=== PATIENT | female | born 1990 | race Caucasian/White ===

== ENCOUNTER 2017-06-10 17:51 | Emergency (ER) | payer BC ==
[~2017-06-10] VITALS: Ht 165.1 cm; Wt 77.1 kg
[~2017-06-10 17:51] MED LIST: NORE-69 PO; TRAZ50TA15 PO; VENL37.56 PO
[2017-06-10 18:35] LABS: BASO % 1 % (0-3); EOS % 2 % (0-3); HEMATOCRIT 45.4 % (36.0-47.0); HEMOGLOBIN 15.6 g/dL (12.0-15.5); LYMPH # 2.5 x10^3/uL (1.0-4.8); LYMPH % 33 % (24-48); MEAN CORPUSCULAR HEMOGLOBIN 33 pg (25-35); MEAN CORPUSCULAR HGB CONC 34 g/dL (31-37); MEAN CORPUSCULAR VOLUME 97 fL (79-100); MONO % 6 % (0-9); NEUT % 58 % (31-73); PLATELET COUNT 389 x10^3/uL (140-400); RED BLOOD COUNT 4.67 x10^6/uL (3.50-5.40); RED CELL DISTRIBUTION WIDTH 13.5 % (11.5-14.5); WHITE BLOOD COUNT 7.5 x10^3/uL (4.0-11.0)
[2017-06-10 18:36] LABS: BILIRUBIN,URINE NEGATIVE (NEG); GLUCOSE,URINE NEGATIVE (NEG); NITRITE,URINE NEGATIVE (NEG); PROTEIN,URINE NEGATIVE (NEG-TRACE); UROBILINOGEN,URINE 0.2 mg/dL (0.2 mg/dL)
[2017-06-10 18:42] LABS: BACTERIA,URINE FEW /HPF (0-FEW); RBC,URINE 0 /HPF (0-2); SQUAMOUS EPITHELIAL CELL,UR FEW /LPF; WBC,URINE 0 /HPF (0-4)
[2017-06-10] MEDS ORDERED: FAMO40TA57 PO (18:44)
--- NOTE | 2017-06-10 18:44 | PHYS DOC ---
Adult General Chief Complaint Chief Complaint: ABDOMINAL PAIN HPI HPI 19-year-old female presenting to the emergency department today with epigastric abdominal pain. Her pain is moderate burning sensation nonradiating without alleviating factors. She has had a few episodes of nausea without vomiting. She has had loose stools recently without any fevers or chills. She denies being . Review of systems is negative for chest pain shortness of breath cough fevers or chills. She does report being constipated. All other review of systems is negative unless otherwise noted in history of present illness. ED course: 27-year-old female presenting the emergency Department generalized epigastric abdominal pain. Triage vital signs. Pertinent physical exam findings showed a soft nontender abdomen. Negative McBurney's point. Negative Bullock sign. No rebound tenderness or guarding. Otherwise lungs are clear to auscultation and the patient is well-appearing in the examination room. Blood work sent. GI cocktail and Pepcid ordered. On reexamination the patient is feeling much better and subsequently was discharged home with oral Pepcid to follow-up with her Dr. The patient was then discharged home in stable condition to follow up with their primary care physician over the next 2-3 days. They were to return if their symptoms worsened or if they were concerned for any reason. [id number] discharge instructions and return precautions were given. Patient's questions were answered to their satisfaction. Patient is comfortable plan. Review of Systems Review of Systems SEE ABOVE. Current Medications Current Medications Current Medications Medications (Trade) Dose Ordered Sig/[facility] Start Time Stop Time Status Last Admin Dose Admin Famotidine (Pepcid) 20 mg 1X ONCE 06/10/17 18:45 06/10/17 18:46 DC 06/10/17 18:58 20 MG Multi-Ingredient Mouthwash/Gargle (Gi Cocktail Single Dose) 15 ml 1X ONCE 06/10/17 18:45 06/10/17 18:46 DC 06/10/17 18:58 15 ML Allergies Allergies Allergies Coded Allergies Type Severity Reaction Last Updated Verified No Known Drug Allergies 10/07/14 No Physical Exam Physical Exam SEE ABOVE Constitutional: Well developed, well nourished, no acute distress, non-toxic appearance. [] HENT: Normocephalic, atraumatic, bilateral external ears normal, oropharynx moist, no oral exudates, nose normal. [] Eyes: PERRLA, EOMI, conjunctiva normal, no discharge. [] Neck: Normal range of motion, no tenderness, supple, no stridor. [] Cardiovascular:Heart rate regular rhythm, no murmur [] Lungs & Thorax: Bilateral breath sounds clear to auscultation [] Abdomen: SEE ABOVE Skin: Warm, dry, no erythema, no rash. [] Back: No tenderness, no CVA tenderness. [] Extremities: No tenderness, no cyanosis, no clubbing, ROM intact, no edema. [] Neurologic: Alert and oriented X 3, normal motor function, normal sensory function, no focal deficits noted. [] Psychologic: Affect normal, judgement normal, mood normal. [] Current Patient Data Vital Signs Vital Signs Date Time Temp Pulse Resp B/P (MAP) Pulse Ox O2 Delivery O2 Flow Rate FiO2 06/10/17 18:15 97.7 94 16 112/82 (92) 100 Room Air 97.7 Lab Values Laboratory Tests Test 06/10/17 18:25 06/10/17 18:29 White Blood Count 7.5 x10^3/uL (4.0-11.0) Red Blood Count 4.67 x10^6/uL (3.50-5.40) Hemoglobin 15.6 g/dL (12.0-15.5) H Hematocrit 45.4 % (36.0-47.0) Mean Corpuscular Volume 97 fL (79-100) Mean Corpuscular Hemoglobin 33 pg (25-35) Mean Corpuscular Hemoglobin Concent 34 g/dL (31-37) Red Cell Distribution Width 13.5 % (11.5-14.5) Platelet Count 389 x10^3/uL (140-400) Neutrophils (%) (Auto) 58 % (31-73) Lymphocytes (%) (Auto) 33 % (24-48) Monocytes (%) (Auto) 6 % (0-9) Eosinophils (%) (Auto) 2 % (0-3) Basophils (%) (Auto) 1 % (0-3) Neutrophils # (Auto) 4.4 x10^3uL (1.8-7.7) Lymphocytes # (Auto) 2.5 x10^3/uL (1.0-4.8) Monocytes # (Auto) 0.5 x10^3/uL (0.0-1.1) Eosinophils # (Auto) 0.1 x10^3/uL (0.0-0.7) Basophils # (Auto) 0.0 x10^3/uL (0.0-0.2) Urine Collection Type Unknown Urine Color Yellow Urine Clarity Clear Urine pH 7.0 Urine Specific [place] 1.020 Urine Protein Negative mg/dL (NEG-TRACE) Urine Glucose (UA) Negative mg/dL (NEG) Urine Ketones (Stick) Negative mg/dL (NEG) Urine Blood Negative (NEG) Urine Nitrite Negative (NEG) Urine Bilirubin Negative (NEG) Urine Urobilinogen Dipstick 0.2 mg/dL (0.2 mg/dL) Urine Leukocyte Esterase Negative (NEG) Urine RBC 0 /HPF (0-2) Urine WBC 0 /HPF (0-4) Urine Squamous Epithelial Cells Few /LPF Urine Bacteria Few /HPF (0-FEW) Urine Mucus Mod /LPF Sodium Level 139 mmol/L (136-145) Potassium Level 3.5 mmol/L (3.5-5.1) Chloride Level 99 mmol/L (98-107) Carbon Dioxide Level 30 mmol/L (21-32) Anion Gap 10 (6-14) Blood Urea Nitrogen 11 mg/dL (7-20) Creatinine 1.1 mg/dL (0.6-1.0) H Estimated GFR (Cockcroft-Gault) 59.1 BUN/Creatinine Ratio 10 (6-20) Glucose Level 102 mg/dL (70-99) H Calcium Level 10.1 mg/dL (8.5-10.1) Total Bilirubin 0.6 mg/dL (0.2-1.0) Aspartate Amino Transferase (AST) 23 U/L (15-37) Alanine Aminotransferase (ALT) 29 U/L (14-59) Alkaline Phosphatase 108 U/L (46-116) Total Protein 8.3 g/dL (6.4-8.2) H Albumin 4.6 g/dL (3.4-5.0) Albumin/Globulin Ratio 1.2 (1.0-1.7) Lipase 206 U/L (73-393) POC Urine HCG, Qualitative Hcg negative (Negative) Laboratory Tests 06/10/17 18:25 Laboratory Tests 06/10/17 18:25 EKG EKG [] Radiology/Procedures Radiology/Procedures [] Course & Med Decision Making Course & Med Decision Making Pertinent Labs and Imaging studies reviewed. (See chart for details) [] Dragon Disclaimer Dragon Disclaimer This electronic medical record was generated, in whole or in part, using a voice recognition dictation system. Departure Departure Impression: Primary Impression: Epigastric abdominal pain Disposition: HOME, SELF-CARE Condition: STABLE Referrals: NO PCP (PCP) ZAINAB ESPINOZA MD Patient Instructions: Abdominal Pain, Women Additional Instructions: Thank you for allowing us to participate in your care today. Followup with your primary care physician in 3 days if your symptoms do not improve. Call your Primary Doctor tomorrow and inform them of your visit today. If you do not have a primary care provider you can ask for a list of our primary care providers. Return to the emergency department you have any new or concerning findings. This should be evaluated by the primary care physician and any necessary consulting services for continued management within a few days after discharge. Return to emergency room if you have any new or concerning symptoms including but not limited to fever, chills, nausea, vomiting, intractable pain, any new rashes, chest pain, shortness of air, uncontrolled bleeding, difficulty breathing, and/or vision loss. Scripts Famotidine (PEPCID) 40 Mg Tablet 40 MG PO HS, #14 TAB 0 Refills Prov: HOA CASH MD 06/10/17 HOA CASH MD Jun 10, 2017 18:44
[2017-06-10 18:45] VITALS: BP 105/81
[2017-06-10] MEDS ORDERED: FAMOTIDINE 20 MG TABLET. PO ONE (18:45)
[2017-06-10] MEDS ORDERED: LIDO:MAALOX:DONNATAL 1:1:1 15 ML SINGLE DOSE SWSW ONE (18:45)
[2017-06-10 18:49] LABS: CALCIUM 10.1 mg/dL (8.5-10.1); CREATININE 1.1 mg/dL (0.6-1.0); GFR 59.1; POTASSIUM 3.5 mmol/L (3.5-5.1)
[2017-06-10 18:55] LABS: ALBUMIN 4.6 g/dL (3.4-5.0); ALBUMIN/GLOBULIN RATIO 1.2 (1.0-1.7); TOTAL BILIRUBIN 0.6 mg/dL (0.2-1.0); TOTAL PROTEIN 8.3 g/dL (6.4-8.2)
== END 2017-06-10 19:17 | disposition home or self-care (01) ==
LOC: ER 17:51
DX: R10.13 Epigastric pain (principal); R11.0 Nausea
CPT/HCPCS: 36415; 80053; 81001; 81025; 83690; 85025; 99284

== ENCOUNTER → 2019-09-11 | Outpatient (CLI) | payer BC ==
[~2019-09-11] MED LIST changes: +ALBU2.5V8 IH; +ALPR1TAB PO; +ALPR1TAB6 PO; +DIVA250T PO; +FAMO40TA57 PO; +GADOTERATE 7.5 MMOL/15ML VIAL. IVP ONE; +LAMO200T25 PO; +LAMO200T6 PO; +OXCA600T9 PO; +PHEN37.599 PO; +TRAZ-118 PO; -TRAZ50TA15 PO
--- NOTE | 2019-09-11 14:34 | KCIC ---
BRAIN WO/W CONTRAST History: Dizziness. Nausea. Migraines. Hyperprolactinemia. History of microadenoma. Technique: Multiplanar, multi sequential pre and postcontrast MR imaging was performed of the brain. Pituitary protocol. Comparison: Head CT July 18, 2019. Findings: T2 hypointense lesion within the left aspect of the pituitary gland measures 5 x 5 mm with suggestion of hypoenhancement on initial post contrast imaging (series 11 image 7 and series 13 image 5). Pituitary infundibulum is midline. No evidence of mass effect on the suprasellar cistern or optic chiasm. No evidence of cavernous sinus invasion. No acute infarction. No intracranial hemorrhage. No mass effect. No hydrocephalus. No intraparenchymal pathologic enhancement. Imaged orbits are unremarkable. Imaged paranasal sinuses and mastoid air cells are clear. Impression: 1. Small T2 hypointense lesion within the left aspect of the pituitary gland, may represent pituitary microadenoma. Recommend follow-up. Electronically signed by: Sivakumar Mercer DO (09/11/2019 2:30 PM) [id number]
== END | disposition home or self-care (01) ==
LOC: KCIC MRI 10:19
PROVIDERS: ATTEND Psychiatry & Neurology Neurology with Special Qualifications in Child Neurology
DX: D35.2 Benign neoplasm of pituitary gland (principal); G43.909 Migraine, unspecified, not intractable, without status migrainosus; E22.1 Hyperprolactinemia; F17.200 Nicotine dependence, unspecified, uncomplicated
CPT/HCPCS: 70553; A9575

== ENCOUNTER → 2019-12-24 | Outpatient (CLI) | payer BC ==
[~2019-12-24] MED LIST changes: -GADOTERATE 7.5 MMOL/15ML VIAL. IVP ONE
--- NOTE | 2019-12-26 11:41 | EEG ---
DATE OF SERVICE: 12/24/2019 ELECTROENCEPHALOGRAM EEG#: [id number] OBJECTIVE: The patient is a 29-year-old female with syncopal episodes. DESCRIPTION: This is a digital study. Electrodes are placed according to the International 10-21 System. Bipolar and referential montages are available. Activation procedures typically include hyperventilation and intermittent photic stimulation. INTERPRETATION: The waking background consists of 9-10 Hz, 50-100 microvolt activity symmetrically distributed over parietooccipital regions and reactive to eye opening. Stage 1 sleep is achieved with normal electroencephalogram patterns. The patient only hyperventilated for 1 minute and then gave up. Intermittent photic stimulation is noncontributory. IMPRESSION: This electroencephalogram with the patient awake and asleep is within normal limits. There is no focal, paroxysmal, or epileptiform activity. Thank you for letting us help with the patient's care. CEDRIC RODRIGUEZ MD DR: TOMMY/herbert JOB#: [id number] / [id number] MARY Horn
== END | disposition home or self-care (01) ==
LOC: RT 08:32
PROVIDERS: ATTEND Psychiatry & Neurology Neurology with Special Qualifications in Child Neurology
DX: R55 Syncope and collapse (principal)
CPT/HCPCS: 95816